=== PATIENT | female | born 1985 | race Hispanic/Latino ===

== ENCOUNTER → 2016-02-23 | Outpatient (CLI) | payer BC ==
[~2016-02-23] MED LIST: FERR-57 PO; HYDR-3583 PO; HYDR-3812 PO; IBP800T PO; LEVO50TA6 PO; PRD20T PO; PREN1TAB39 PO
--- NOTE | 2016-02-23 16:05 | Diagnostic Imaging Report ---
Indication: Heavy menstrual cycles. Comparison: 04/13/2015. Discussion: Transabdominal and transvaginal sonographic evaluation of the pelvis was performed. The uterus is normal in echotexture and size measuring 8.1 x 4.8 x 4.5 cm. Normal endometrial thickness measuring 0.6 cm. The ovaries appear normal in echotexture and size bilaterally with normal color Doppler blood flow. The right ovary measures 2.6 x 2.1 x 2.1 cm. The left ovary measures 4.5 x 2.3 x 1.8 cm. No abnormal adnexal mass or fluid. Impression: 1. Unremarkable pelvic ultrasound. Dictated by: Dictated on workstation # [id number]
== END ==
LOC: RAD 14:52
PROVIDERS: ATTEND Family Medicine
DX: N93.9 Abnormal uterine and vaginal bleeding, unspecified (principal)
CPT/HCPCS: 76830; 76856

== ENCOUNTER 2020-01-14 20:32 | Emergency (ER) | payer BC ==
[~2020-01-14] VITALS: Ht 157 cm; Wt 83.8 kg
[~2020-01-14 20:32] MED LIST changes: +ACHD5005 PO; -HYDR-3812 PO
[2020-01-14 21:10] LABS: BILIRUBIN,URINE NEGATIVE (NEGATIVE); COLOR,URINE YELLOW; GLUCOSE, URINE (UA) NEGATIVE (NEGATIVE); KETONES,URINE NEGATIVE (NEGATIVE); LEUKOCYTE ESTERASE ,URINE 3+ (NEGATIVE); NITRITE,URINE NEGATIVE (NEGATIVE); PH,URINE 6.5 (5-9); PROTEIN,URINE NEGATIVE (NEGATIVE)
[2020-01-14] MEDS ORDERED: ANTACID SUSP 30 ML UDC (MYLANTA) PO ONE (21:15)
[2020-01-14] MEDS ORDERED: LIDOCAINE 2% VISCOUS 15 ML UDC PO ONE (21:15)
--- NOTE | 2020-01-14 21:17 | ED Abdominal Pain ---
General Chief Complaint: Back Problems Stated Complaint: LOWER BACK PAIN;ABD PAIN; APPROX 9 WKS Nursing Triage Note: PT REPORTS TO ED FOR LOW BACK PAIN AND ABDOMINAL PAIN X'S 2 DAYS. PT REPORTS SHE IS AND IS ABOUT 9 WEEKS ALONG. Sepsis Screen: No Definite Risk Source of Information: Patient Exam Limitations: No Limitations History of Present Illness Date Seen by Provider: Jan 14, 2020 Time Seen by Provider: 20:50 Initial Comments This 34-year-old woman at about 9 weeks gestational age with LMP of November 06 presents to the emergency room with epigastric and left upper quadrant pain radiating to the back that started yesterday. She denies any prior episodes. She has had minimal nausea through the . She denies any urinary symptoms, fever, constipation, diarrhea, or vomiting. Allergies and Home Medications Allergies Coded Allergies: No Known Drug Allergies (Unverified , 05/30/10) Home Medications Hydrocodone Bit/Acetaminophen 1 Each Tablet, 1-2 EACH PO Q4H PRN for PAIN Prescribed by: SAMANTHA DICKSON on 04/07/15 0407 Levothyroxine Sodium 50 Mcg Tablet, 25 MCG PO DAILY, (Reported) Patient Home Medication List Home Medication List Reviewed: Yes Review of Systems Review of Systems Constitutional: no symptoms reported EENTM: No Symptoms Reported Respiratory: No Symptoms Reported Cardiovascular: No Symptoms Reported Gastrointestinal: See HPI Genitourinary: See HPI Musculoskeletal: no symptoms reported Skin: no symptoms reported Psychiatric/Neurological: No Symptoms Reported Endocrine: No Symptoms Reported Hematologic/Lymphatic: No Symptoms Reported Past Ltdhfbc-Plxsxa-Vfhpls Hx Past Med/Social Hx: Reviewed Nursing Past Med/Soc Hx Patient Social History Alcohol Use: Denies Use Recreational Drug Use: No Smoking Status: Never a Smoker Recent Foreign Travel: No Contact w/Someone Who Travel: No Recent Infectious Disease Expo: No Recent Hopitalizations: No Seasonal Allergies Seasonal Allergies: No Past Medical History Surgeries: No Respiratory: No Cardiac: No Neurological: No : Yes Reproductive Disorders: No Gastrointestinal: No Musculoskeletal: No Endocrine: Yes Hypothyroidsim Cancer: No Psychosocial: No Blood Disorders: No Physical Exam Vital Signs Vital Signs - First Documented 01/14/20 01/15/20 20:44 00:49 Temp 35.7 Pulse 64 Resp 18 B/P (MAP) 123/72 (89) Pulse Ox 100 O2 Delivery Room Air Capillary Refill : Less Than 3 Seconds Height/Weight/BMI Height: 5'5" Weight: 185lbs. oz. 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, no motor/sensory deficits, alert, normal mood/affect, oriented x 3 Skin: normal color, warm/dry Progress/Results/Core Measures Results/Orders Lab Results Laboratory Tests Test 01/14/20 20:56 01/14/20 21:37 Range/Units Urine Color YELLOW Urine Clarity SL CLOUDY Urine pH 6.5 5-9 Urine Specific [place] 1.020 1.016-1.022 Urine Protein NEGATIVE NEGATIVE Urine Glucose (UA) NEGATIVE NEGATIVE Urine Ketones NEGATIVE NEGATIVE Urine Nitrite NEGATIVE NEGATIVE Urine Bilirubin NEGATIVE NEGATIVE Urine Urobilinogen 0.2 < = 1.0 MG/DL Urine Leukocyte Esterase 3+ H NEGATIVE Urine RBC (Auto) TRACE-I NEGATIVE Urine RBC RARE /HPF Urine WBC 10-25 H /HPF Urine Squamous Epithelial Cells 5-10 /HPF Urine Crystals PRESENT H /LPF Urine Amorphous Sediment FEW FELICIA URATES H /LPF Urine Bacteria MODERATE H /HPF Urine Casts NONE /LPF Urine Mucus NEGATIVE /LPF Urine Culture Indicated YES Urine Test POSITIVE NEGATIVE White Blood Count 10.8 4.3-11.0 10^3/uL Red Blood Count 4.43 3.80-5.11 10^6/uL Hemoglobin 12.1 11.5-16.0 g/dL Hematocrit 38 35-52 % Mean Corpuscular Volume 85 80-99 fL Mean Corpuscular Hemoglobin 27 25-34 pg Mean Corpuscular Hemoglobin Concent 32 32-36 g/dL Red Cell Distribution Width 13.9 10.0-14.5 % Platelet Count 300 130-400 10^3/uL Mean Platelet Volume 9.3 9.0-12.2 fL Immature Granulocyte % (Auto) 0 % Neutrophils (%) (Auto) 69 42-75 % Lymphocytes (%) (Auto) 21 12-44 % Monocytes (%) (Auto) 7 0-12 % Eosinophils (%) (Auto) 2 0-10 % Basophils (%) (Auto) 0 0-10 % Neutrophils # (Auto) 7.5 1.8-7.8 10^3/uL Lymphocytes # (Auto) 2.3 1.0-4.0 10^3/uL Monocytes # (Auto) 0.8 0.0-1.0 10^3/uL Eosinophils # (Auto) 0.2 0.0-0.3 10^3/uL Basophils # (Auto) 0.0 0.0-0.1 10^3/uL Immature Granulocyte # (Auto) 0.0 0.0-0.1 10^3/uL Sodium Level 137 135-145 MMOL/L Potassium Level 4.0 3.6-5.0 MMOL/L Chloride Level 105 98-107 MMOL/L Carbon Dioxide Level 21 21-32 MMOL/L Anion Gap 11 5-14 MMOL/L Blood Urea Nitrogen 10 7-18 MG/DL Creatinine 0.75 0.60-1.30 MG/DL Estimat Glomerular Filtration Rate > 60 BUN/Creatinine Ratio 13 Glucose Level 105 70-105 MG/DL Calcium Level 8.5 8.5-10.1 MG/DL Corrected Calcium 8.4 L 8.5-10.1 MG/DL Total Bilirubin 0.3 0.1-1.0 MG/DL Aspartate Amino Transf (AST/SGOT) 16 5-34 U/L Alanine Aminotransferase (ALT/SGPT) 17 0-55 U/L Alkaline Phosphatase 49 40-136 U/L C-Reactive Protein High Sensitivity 0.21 0.00-0.50 MG/DL Total Protein 7.8 6.4-8.2 GM/DL Albumin 4.1 3.2-4.5 GM/DL Lipase 23 8-78 U/L Human Chorionic Gonadotropin, Quant 34019 H <5 MIU/ML My Orders [place] - LAMINE THOMPSON MD Hcg,Qualitative Urine (01/14/20 21:01) Ua Culture If Indicated (01/14/20 21:01) Lidocaine 2% Viscous 15 Ml (Xylocaine Vi (01/14/20 21:15) Antacid Suspension (Mylanta Suspension (01/14/20 21:15) Urine Culture (01/14/20 20:56) Cbc With Automated Diff (01/14/20 21:30) Comprehensive Metabolic Panel (01/14/20 21:30) Hs C Reactive Protein (01/14/20 21:30) Hcg,Quantitative (01/14/20 21:30) Lipase (01/14/20 21:30) Ceftriaxone For Iv Use (Rocephin For I (01/14/20 22:45) Fentanyl Injection (Sublimaze Injection (01/14/20 23:00) Ondansetron Injection (Zofran Injectio (01/14/20 23:00) Ondansetron Injection (Zofran Injectio (01/14/20 22:49) Fentanyl Injection (Sublimaze Injection (01/15/20 00:00) Medications Given in ED Current Medications Medications Dose Ordered Sig/Shabnam Route Start Time Stop Time Status Last Admin Dose Admin Al Hydrox/Mg Hydrox/Simethicone 30 ml ONCE ONCE PO 01/14/20 21:15 01/14/20 21:16 DC 01/14/20 21:11 30 ML Ceftriaxone Sodium 1000 mg/ Sterile Water 10 ml @ 200 mls/hr ONCE ONCE IV 01/14/20 22:45 01/14/20 22:47 DC 01/14/20 22:45 200 MLS/HR Fentanyl Citrate 50 mcg ONCE ONCE IVP 01/14/20 23:00 01/14/20 23:01 DC 01/14/20 22:57 50 MCG Fentanyl Citrate 50 mcg ONCE ONCE IVP 01/15/20 00:00 01/15/20 00:00 DC 01/14/20 23:59 50 MCG Lidocaine HCl 15 ml ONCE ONCE PO 01/14/20 21:15 01/14/20 21:16 DC 01/14/20 21:11 15 ML Ondansetron HCl 4 mg ONCE ONCE IVP 01/14/20 23:00 01/14/20 23:01 DC 01/14/20 22:53 4 MG Vital Signs/I&O 01/14/20 01/15/20 20:44 00:49 Temp 35.7 Pulse 64 54 Resp 18 20 B/P (MAP) 123/72 (89) 115/67 Pulse Ox 100 O2 Delivery Room Air Room Air Blood Pressure Mean: 89 Progress Progress Note #1: Time: 21:17 Progress Note Patient was seen and examined. Urinalysis is pending. GI cocktail is being trialed. If this does not improve her pain, we will consider further work-up with blood work. Progress Note #2: Time: 21:52 Progress Note GI cocktail did not improve her pain. We are further evaluating with labs. Urinalysis demonstrated urinary tract infection. Progress Note #3: Time: 22:58 Progress Note Patient is being treated with Rocephin. Pain seems to have escalated. Fentanyl is being given for pain and Zofran is being given for nausea. At this point I believe the patient deserves ultrasound to evaluate her pain further. Lab work did not reveal anything in regard to etiology of her pain. I contacted [facility]. Their ultrasound availability will be ending shortly. A call has been placed to [place] awaiting a return call. Progress Note #4: Time: 23:[address] Martínez accepts transfer to [place] ER for imaging. Progress Note #5: Progress Note Patient was still having significant pain prior to transfer and was given second dose of Fentanyl. Departure Impression Primary Impression: Upper abdominal pain Additional Impressions: Urinary tract infection Qualified Codes: N39.0 - Urinary tract infection, site not specified Qualified Codes: Z3A.09 - 9 weeks gestation of Disposition: XF SHT-TRM HOSP Condition: Stable Transfer Transfer Reason: Exceeds level of care Time Spoke to Accepting Phy: 23:10 Transfer Progress Notes Transfer accepted by Dr. Martínez in the ER. [facility]ure-Patient Inst. Referrals: ATTILA WOODALL MD (PCP/Family) Primary Care Physician LAMINE THOMPSON MD Jan 14, 2020 21:17
[2020-01-14 21:23] LABS: CLARITY,URINE SL CLOUDY
[2020-01-14 21:24] LABS: AMORPHOUS SEDIMENT,UR FEW AMOR URATES /LPF; BACTERIA,URINE MODERATE /HPF; RBC,URINE RARE /HPF
[2020-01-14 21:44] LABS: BASOPHILS % (AUTO) 0 % (0-10); EOSINOPHILS # (AUTO) 0.2 10^3/uL (0.0-0.3); EOSINOPHILS % (AUTO) 2 % (0-10); HEMATOCRIT 38 % (35-52); HEMOGLOBIN 12.1 g/dL (11.5-16.0); LYMPHOCYTES # (AUTO) 2.3 10^3/uL (1.0-4.0); LYMPHOCYTES % (AUTO) 21 % (12-44); MEAN CORPUSCULAR HEMOGLOBIN 27 pg (25-34); MEAN CORPUSCULAR HGB CONC 32 g/dL (32-36); MEAN CORPUSCULAR VOLUME 85 fL (80-99); MEAN PLATELET VOLUME 9.3 fL (9.0-12.2); MONOCYTES # (AUTO) 0.8 10^3/uL (0.0-1.0); MONOCYTES % (AUTO) 7 % (0-12); NEUTROPHILS # (AUTO) 7.5 10^3/uL (1.8-7.8); NEUTROPHILS % (AUTO) 69 % (42-75); PLATELET COUNT 300 10^3/uL (130-400); WHITE BLOOD COUNT 10.8 10^3/uL (4.3-11.0)
[2020-01-14 21:54] LABS: ALBUMIN 4.1 GM/DL (3.2-4.5); CHLORIDE 105 MMOL/L (98-107); SODIUM 137 MMOL/L (135-145)
[2020-01-14 21:55] LABS: CALCIUM 8.5 MG/DL (8.5-10.1)
[2020-01-14 21:56] LABS: GLUCOSE 105 MG/DL (70-105); TOTAL PROTEIN 7.8 GM/DL (6.4-8.2)
[2020-01-14 21:57] LABS: CARBON DIOXIDE 21 MMOL/L (21-32)
[2020-01-14 21:58] LABS: BILIRUBIN,TOTAL 0.3 MG/DL (0.1-1.0)
[2020-01-14 22:00] LABS: ALKALINE PHOSPHATASE 49 U/L (40-136); CREATININE SERUM 0.75 MG/DL (0.60-1.30); GFR ESTIMATED > 60
[2020-01-14 22:01] LABS: BUN/CREATININE RATIO 13
[2020-01-14 22:03] LABS: ALANINE AMINOTRANSFERASE 17 U/L (0-55); LIPASE 23 U/L (8-78)
[2020-01-14] MEDS ORDERED: cefTRIAXone FOR IV USE 1,000 MG in WATER (STERILE) FOR INJECTION 10 ML IV ONE (22:45)
[2020-01-14] MEDS ORDERED: ONDANSETRON 4 MG/2 ML (SDV) Z0FRAN ONE (22:49)
[2020-01-14] MEDS ORDERED: ONDANSETRON 4 MG/2 ML (SDV) Z0FRAN IVP ONE (23:00)
[2020-01-14] MEDS ORDERED: fentaNYL INJECTION 100 MCG/2 ML AMP IVP ONE (23:00)
[2020-01-15] MEDS ORDERED: fentaNYL INJECTION 100 MCG/2 ML AMP IVP ONE
[2020-01-15 00:49] VITALS: BP 115/67
== END 2020-01-15 | disposition short-term general hospital (02) ==
LOC: EDUNIT# 20:32 → ER 20:36
DX: O26.891 Other specified pregnancy related conditions, first trimester (principal); R10.13 Epigastric pain; N39.0 Urinary tract infection, site not specified; E03.9 Hypothyroidism, unspecified; Z3A.09 9 weeks gestation of pregnancy; Z79.890 Hormone replacement therapy
CPT/HCPCS: 36415; 80053; 81000; 83690; 84702; 84703; 85025; 86141; 87077; 87088

== ENCOUNTER → 2020-01-17 | Outpatient (CLI) | payer BC ==
--- NOTE | 2020-01-17 17:04 | Diagnostic Imaging Report ---
PROCEDURE: US OB single fetus <14 wks. TECHNIQUE: Multiple real-time grayscale images were obtained over the gravid uterus in various projections. INDICATION: dating. COMPARISON: None. FINDINGS: A single live intrauterine gestation is present with a CRL of 1.2 cm. This corresponds with an estimated gestational age of 7 weeks 3 days and DEBORAH of 08/13/2020. heart rate is 161 bpm. The gestational sac demonstrates double decidual reaction and has normal contours and fluid. A formal anatomic survey was not performed. No gross abnormalities are present. The right ovary measures 2.4 x 3.5 x 3.0 cm. A cyst is seen in the right ovary measuring 2.5 x 1.7 x 2.2 cm. The left ovary is not visualized due to overlying bowel gas. No adnexal masses are seen. No free fluid is visualized within the posterior cul-de-sac. IMPRESSION: 1. Single live intrauterine gestation with EGA of 7 weeks, 3 days and estimated due date of 08/13/2020. These are discordant with the clinical dates. Recommend continued follow-up with serial beta hCGs and pelvic ultrasound as indicated. Dictated by: Dictated on workstation # [id number]
== END ==
LOC: RAD 10:15
PROVIDERS: ATTEND Family Medicine
DX: Z34.91 Encounter for supervision of normal pregnancy, unspecified, first trimester (principal); Z3A.01 Less than 8 weeks gestation of pregnancy
CPT/HCPCS: 76801

== ENCOUNTER → 2020-04-05 | Outpatient (CLI) | payer BC ==
--- NOTE | 2020-04-05 14:47 | Diagnostic Imaging Report ---
INDICATION: patient, survey. TECHNIQUE: Multiple real-time grayscale images were obtained over the gravid uterus. COMPARISON: 01/17/2020 FINDINGS: A single live intrauterine fetus is seen measuring 20 weeks 0 days in size. This is about 10 days smaller than expected compared to original dates of 01/17/2020. The fetus is in breech presentation at this time. Amniotic fluid index is 13.5 cm. Placenta is anterior with no evidence of previa. heart rate is 143 bpm. Gestational sac had normal-appearing shape. Cervical length was 6 cm. anatomical survey showed normal-appearing kidneys and bladder. Normal-appearing stomach was seen. Normal-appearing intracranial ventricles were seen. Three-vessel cord was noted. Four-chamber heart view appeared normal. spine and cord insertion were not well imaged due to positioning. Adnexa were not well seen but there was no free fluid. Biometrical measurements are as follows: Biparietal 4.66 cm, age 20 weeks 1 days. Head circumference 17.45 cm, age 20 weeks 0 days. Abdominal circumference 14.65 cm, age 20 weeks 0 days. Femur length 3.13 cm, age 19 weeks 6 days. Sonographic estimate age: 20 weeks 0 days. Sonographic estimated date of delivery: 08/23/2020. Estimated Weight: 318 gm (+/- 46 gm). LMP percentile: 2%. heart rate: 143 beats per minute. number: 1 of 1. IMPRESSION: Single live intrauterine fetus measuring 20 weeks 0 days in size. This is about 10 days more than expected from original dates compared to the ultrasound of 01/17/2020. There was no detectable abnormality, although spine and cord insertion were not well seen. Consider limited follow-up as clinically warranted. Dictated by: Dictated on workstation # [id number]
== END ==
LOC: RAD 10:00
PROVIDERS: ATTEND Family Medicine
DX: Z34.92 Encounter for supervision of normal pregnancy, unspecified, second trimester (principal); Z3A.20 20 weeks gestation of pregnancy
CPT/HCPCS: 76805

== ENCOUNTER 2020-08-17 07:06 | Outpatient (CLI) | payer BC ==
[~2020-08-17] VITALS: Ht 162.6 cm; Wt 94.5 kg
== END 2020-08-17 14:16 | disposition home or self-care (01) ==
LOC: PREOP 07:06
PROVIDERS: ATTEND Obstetrics & Gynecology
DX: Z01.818 Encounter for other preprocedural examination (principal)

== ENCOUNTER 2020-08-21 23:26 | Inpatient (IN) | payer BC ==
[~2020-08-21] VITALS: Ht 162.6 cm; Wt 96.3 kg
[2020-08-21 23:51] VITALS: BP 129/75
[2020-08-21 23:56] LABS: BILIRUBIN,URINE NEGATIVE (NEGATIVE); CLARITY,URINE CLEAR; COLOR,URINE AMBER; GLUCOSE, URINE (UA) NEGATIVE (NEGATIVE); KETONES,URINE NEGATIVE (NEGATIVE); LEUKOCYTE ESTERASE ,URINE 2+ (NEGATIVE); NITRITE,URINE NEGATIVE (NEGATIVE); PROTEIN,URINE NEGATIVE (NEGATIVE)
[2020-08-22] VITALS (11 sets, daily range): BP systolic 104–126; BP diastolic 53–75
[2020-08-22 00:06] LABS: BACTERIA,URINE FEW /HPF; RBC,URINE >100 /HPF
[2020-08-22] MEDS ORDERED: LACTATED RINGERS 1,000 ML IV ONE (00:15)
[2020-08-22] MEDS ORDERED: ceFAZolin 2 GM IV Premixed 50 ML IV ONE ×2 (00:15→08:45)
[2020-08-22] MEDS ORDERED: ceFAZolin 2 GM IV Premixed 50 ML ONE ×2 (00:15→11:04)
[2020-08-22] MEDS: D5 LR IV SOLUTION 1,000 ML IV SCH ×2 (01:38→10:53)
[2020-08-22] MEDS ORDERED: LEVO75CA5 PO (06:16)
[2020-08-22] MEDS ORDERED: PREN-142 PO (06:16)
[2020-08-22 06:20] LABS: BASOPHILS % (AUTO) 0 % (0-10); EOSINOPHILS # (AUTO) 0.2 10^3/uL (0.0-0.3); EOSINOPHILS % (AUTO) 2 % (0-10); HEMATOCRIT 33 % (35-52); LYMPHOCYTES # (AUTO) 1.9 10^3/uL (1.0-4.0); LYMPHOCYTES % (AUTO) 20 % (12-44); MEAN CORPUSCULAR HEMOGLOBIN 29 pg (25-34); MEAN CORPUSCULAR HGB CONC 33 g/dL (32-36); MEAN CORPUSCULAR VOLUME 87 fL (80-99); MEAN PLATELET VOLUME 10.8 fL (9.0-12.2); MONOCYTES # (AUTO) 0.6 10^3/uL (0.0-1.0); MONOCYTES % (AUTO) 6 % (0-12); NEUTROPHILS # (AUTO) 6.7 10^3/uL (1.8-7.8); NEUTROPHILS % (AUTO) 70 % (42-75); PLATELET COUNT 211 10^3/uL (130-400); WHITE BLOOD COUNT 9.5 10^3/uL (4.3-11.0)
--- NOTE | 2020-08-22 08:23 | History & Physical-OB ---
OB - Chief Complaint & HPI Date/Time Date of Admission: Date of Admission: Date seen by a Provider: Aug 22, 2020 Time Seen by a Provider: 08:20 Chief Complaint/History OB-Reason for Admission/Chief: Section Hx : 2 Hx Para: 1 Expected Date of Delivery: Sep 01, 2020 Gestational Age in Weeks: 38 Gestational Age in Days: 3 Indication for : desires repeat Admission Nurse Assessment Rev: Yes Allergies and Home Medications Allergies Coded Allergies: No Known Drug Allergies (Unverified , 05/30/10) Home Medications Levothyroxine Sodium 75 Mcg Capsule, 75 MCG PO DAILY, (Reported) Last Action: New Order Vit No.124/Iron/FA 1 Each Tablet, 1 EACH PO DAILY, (Reported) Last Action: New Order Patient Home Medication List Home Medication List Reviewed: Yes OB - History Hx of Present Care: Yes Ultrasounds: Normal mid trimester US Obstetrical Complications: None Medical Complications: None Obstetrical History Hx : 2 Hx Para: 1 Hx Total # of Abortions (Spona: 0 Delivery History Hx Blood Disorders: No Patient Past Medical History n/a Social History/Family History Alcohol Use: Denies Use Recreational Drug Use: No 2nd Hand Smoke Exposure: No OB - Admission Exam Physical Exam Vitals: Vital Signs 08/22/20 01:40 Temp 36.0 Pulse 70 Resp 18 B/P (MAP) 123/58 (79) O2 Delivery Room Air HEENT: NCAT Heart: Rhythm Normal Lungs: Clear Abdomen: Gravid Extremities: Normal Reflexes: Normal Cervical Dilatation: 2cm Effacement: 50% Station: -2 Membranes: Intact Heart Rate: 130's Accelerations: Accelerations Present Decelerations: No Decelerations Short Term Variability: Present Shelter Variability: Average (6-25) Contractions on Admission: 6-10 Minutes Apart Intensity: Mild Labs Laboratory Tests Test 08/21/20 23:30 08/22/20 00:30 Range/Units Urine Color ANGEL H Urine Clarity CLEAR Urine pH 7.0 5-9 Urine Specific [place] 1.010 L 1.016-1.022 Urine Protein NEGATIVE NEGATIVE Urine Glucose (UA) NEGATIVE NEGATIVE Urine Ketones NEGATIVE NEGATIVE Urine Nitrite NEGATIVE NEGATIVE Urine Bilirubin NEGATIVE NEGATIVE Urine Urobilinogen 0.2 < = 1.0 MG/DL Urine Leukocyte Esterase 2+ H NEGATIVE Urine RBC (Auto) 3+ H NEGATIVE Urine RBC >100 H /HPF Urine WBC 5-10 H /HPF Urine Squamous Epithelial Cells 5-10 /HPF Urine Crystals NONE /LPF Urine Bacteria FEW H /HPF Urine Casts NONE /LPF Urine Mucus NEGATIVE /LPF Urine Culture Indicated YES White Blood Count 9.5 4.3-11.0 10^3/uL Red Blood Count 3.86 3.80-5.11 10^6/uL Hemoglobin 11.0 L 11.5-16.0 g/dL Hematocrit 33 L 35-52 % Mean Corpuscular Volume 87 80-99 fL Mean Corpuscular Hemoglobin 29 25-34 pg Mean Corpuscular Hemoglobin Concent 33 32-36 g/dL Red Cell Distribution Width 17.8 H 10.0-14.5 % Platelet Count 211 130-400 10^3/uL Mean Platelet Volume 10.8 9.0-12.2 fL Immature Granulocyte % (Auto) 1 % Neutrophils (%) (Auto) 70 42-75 % Lymphocytes (%) (Auto) 20 12-44 % Monocytes (%) (Auto) 6 0-12 % Eosinophils (%) (Auto) 2 0-10 % Basophils (%) (Auto) 0 0-10 % Neutrophils # (Auto) 6.7 1.8-7.8 10^3/uL Lymphocytes # (Auto) 1.9 1.0-4.0 10^3/uL Monocytes # (Auto) 0.6 0.0-1.0 10^3/uL Eosinophils # (Auto) 0.2 0.0-0.3 10^3/uL Basophils # (Auto) 0.0 0.0-0.1 10^3/uL Immature Granulocyte # (Auto) 0.1 0.0-0.1 10^3/uL Percent Immature Platelet Fraction 2.1 0.0-7.6 % OB - Assessment/Plan/Diagnosis Assessment Assessment: section Admission Dx 35 yo @ 38.4 Previous Active labor Vaginal bleeding Admission Status: Inpatient Order (span 2 midnights) Reason for Inpatient Admission: Repeat Plan Plan: Section SAV NETTLES DO Aug 22, 2020 08:23
[2020-08-22] MEDS ORDERED: FAMOTIDINE 20MG/2ML IV (PEPCID) IV ONE ×2 (08:45→09:00)
[2020-08-22] MEDS ORDERED: CATHETER FLUSH 10 ML SYR IV PRN (08:45)
[2020-08-22] MEDS ORDERED: CITRIC ACID/SOB CIT (BICITRA) 30 ML UDC PO ONE ×2 (08:45→09:00)
[2020-08-22] MEDS ORDERED: LACTATED RINGERS 1,000 ML IV PRN ×2 (08:45)
[2020-08-22] MEDS ORDERED: METOCLOPRAMIDE INJ 10 MG/2 ML (REGLAN) IV ONE ×2 (08:45→09:00)
[2020-08-22] MEDS ORDERED: LACTATED RINGERS 1,000 ML IV SCH (09:00)
[2020-08-22] MEDS ORDERED: CITRIC ACID/SOB CIT (BICITRA) 30 ML UDC ONE (10:46)
[2020-08-22] MEDS ORDERED: FAMOTIDINE 20MG/2ML IV (PEPCID) ONE (10:46)
[2020-08-22] MEDS ORDERED: METOCLOPRAMIDE INJ 10 MG/2 ML (REGLAN) IV NR (11:30)
[2020-08-22] MEDS: LACTATED RINGERS 1,000 ML IV SCH ×2 (11:37→19:36)
[2020-08-22] MEDS ORDERED: BUPIVACAINE 0.5% 30 ML (SENSORCAINE) VIAL ONE (12:07)
[2020-08-22] MEDS ORDERED: OXYTOCIN PRE-MIX DRIP 1,000 ML IV ONE (12:07)
[2020-08-22] MEDS ORDERED: fentaNYL INJ 100 MCG/2 ML AMP ONE (12:08)
[2020-08-22] MEDS ORDERED: ONDANSETRON 4 MG/2 ML (SDV) Z0FRAN ONE (12:11)
[2020-08-22] MEDS ORDERED: TETANUS,DIPTH,PERTUSS P/F (BOOSTRIX) 0.5 ML VIAL IM SCH (12:15)
[2020-08-22] MEDS ORDERED: OXYTOCIN PRE-MIX DRIP 500 ML IV SCH (12:15)
[2020-08-22] MEDS ORDERED: ONDANSETRON 4 MG/2 ML (SDV) Z0FRAN IVP PRN (12:15)
[2020-08-22] MEDS ORDERED: MEASLES,MUMPS,RUBELLA 1 EA INJ SC SCH (12:15)
[2020-08-22] MEDS: KETOROLAC 30 MG/ML VIAL IV SCH ×2 (16:00→21:07)
--- NOTE | 2020-08-22 17:06 | OPERATIVE REPORT ---
DATE OF SERVICE: PREOPERATIVE DIAGNOSES: 1. A 35-year-old G2, P1 at 38 weeks and 4 days gestation. 2. Active labor. 3. Vaginal bleeding. POSTOPERATIVE DIAGNOSES: 1. A 35-year-old G2, P1 at 38 weeks and 4 days gestation. 2. Active labor. 3. Vaginal bleeding. PROCEDURE: Repeat low transverse section. SURGEON: Bharat Nettles DO SUPERVISOR PHOTOSTAT: Dr. Anthony Mcclellan, visitor services assistant was necessary for retraction and manipulation throughout the procedure. ANESTHESIA: Spinal. ESTIMATED BLOOD LOSS: 200 mL. URINE OUTPUT: 100 mL clear at the end of the procedure. FLUIDS: 800 mL lactated Ringer's solution. FINDINGS: A live male infant weighing 6 pounds 8 ounces, Apgars of 9 and 9. Grossly normal appearing uterus, bilateral fallopian tubes and ovaries. SPECIMEN SENT: None. INDICATIONS FOR PROCEDURE: This 35-year-old female is a patient who had sought care with Dr. Mcclellan. Her care was uncomplicated except for the consultation needed for repeat . I had seen the patient in the office and discussed with her and she was actually scheduled for this Friday; however, the patient presented in active labor this morning and we decided to proceed with delivery due to 38 weeks and active labor. Risks of the procedure had been discussed with the patient in detail in her preoperative consultation. After all of her questions were answered in the preoperative area, her consent was obtained, the patient was taken to the operating room. OPERATIVE REPORT IN DETAIL: Once in the operating room, spinal analgesia was found to be adequate, placed in supine position with leftward tilt, prepped and draped in normal sterile fashion. A timeout was performed and anesthesia was tested. I then make a Pfannenstiel skin incision through the previously existing scar using knife and carried down to the underlying fascia using Bovie cautery. Fascial incision was extended laterally using Bovie cautery. Superior aspect of fascial incision was then grasped with Tash clamps, tented up and dissected off the underlying rectus muscle. Inferior aspect of the fascial incision was then grasped with Tash clamps, tented up and dissected off the underlying rectus muscles. Rectus muscles were then dissected down the midline using Kaminski scissors, which exposed the peritoneum, which I entered bluntly and extended using blunt traction. Baldemar ring retractor was placed in the peritoneal incision, which offers excellent lateral sidewall retraction. I then identified the lower uterine segment, which was found to be thinned out and make a low transverse incision to the vesicouterine peritoneum and bluntly dissected off the lower uterine segment, creating a bladder flap. I then proceeded with my myotomy until membranes are visualized, at which point I extended the uterine incision laterally and superiorly using bandage scissors. Amniotomy was performed using an Allis clamp. Clear fluid was noted. Infant was found in vertex presentation, which under fundal pressure, the 's head was elevated up the incision where it delivered through the incision up to the neck where the nares and oropharynx were bulb suctioned. Anterior and posterior shoulders were delivered. The infant was then brought to the operative field with cord doubly clamped and cut and was taken off the field by Dr. Mcclellan. Cord blood was collected, 3-vessel cord with intact placenta was delivered spontaneously thereafter. IV Pitocin was initiated to facilitate uterine contraction. Uterine fundus became firmer with bimanual massage. The uterus was then exteriorized and cleared of all endometrial clots and debris. I then proceeded with closing the uterine incision using 0 Vicryl suture in a running locked fashion. Second layer of imbricating 0 Monocryl was placed. Excellent hemostasis was noted after doing this. I then placed the uterus back in the pelvis and copiously irrigated the pelvis using normal saline. Once again, there was no active bleeding noted from any of my dissection planes. I placed Interceed antiadhesive over my low transverse incision and then proceeded with removing the Baldemar ring retractor. The peritoneum was reapproximated using 3-0 Vicryl suture in running fashion. Rectus muscle reapproximated using 3-0 Vicryl suture in interrupted fashion. The fascia was reapproximated using 0 Vicryl suture in running fashion. Subcutaneous tissue was reapproximated using 3-0 plain and interrupted subcutaneous stitch and skin reapproximated using 4-0 Monocryl running subcuticular. Dermabond was applied to incision and sterile dressing with adhesive white tape. The patient tolerated the procedure well and was taken to recovery area in stable condition. Lap and sponge counts were correct at the end of procedure. Instrument count was correct as well. Two grams of Ancef given preoperatively for infection prophylaxis. Job ID: [id number] DocumentID: [id number] Dictated Date: 08/22/2020 14:29:05 Associate Research Scientist Date: 08/22/2020 17:04:37 Dictated By: BHARAT NETTLES DO
[2020-08-22] MEDS: IBUPROFEN 600 MG (MOTRIN) TAB PO SCH (19:36)
[2020-08-22] MEDS: DOCUSATE SODIUM 100 MG (COLACE) CAP PO SCH (21:07)
[2020-08-22] MEDS: HYDROcodone/APAP 5 MG/325 MG (LORTAB) TAB PO PRN (21:07)
[2020-08-22] MEDS: CATHETER FLUSH 10 ML SYR IV SCH ×2 (21:07→23:51)
[2020-08-23] MEDS: IBUPROFEN 600 MG (MOTRIN) TAB PO SCH ×5 (00:46→21:41)
[2020-08-23 00:52] VITALS: BP 99/57
[2020-08-23] MEDS: HYDROcodone/APAP 5 MG/325 MG (LORTAB) TAB PO PRN ×4 (00:52→21:41)
[2020-08-23 03:50] VITALS: BP 112/54
[2020-08-23] MEDS: KETOROLAC 30 MG/ML VIAL IV SCH ×2 (03:50→07:08)
[2020-08-23] MEDS: CATHETER FLUSH 10 ML SYR IV SCH (03:50)
[2020-08-23 07:24] LABS: BASOPHILS % (AUTO) 0 % (0-10); EOSINOPHILS # (AUTO) 0.2 10^3/uL (0.0-0.3); EOSINOPHILS % (AUTO) 2 % (0-10); HEMATOCRIT 29 % (35-52); HEMOGLOBIN 9.3 g/dL (11.5-16.0); LYMPHOCYTES # (AUTO) 1.9 10^3/uL (1.0-4.0); LYMPHOCYTES % (AUTO) 24 % (12-44); MEAN CORPUSCULAR HEMOGLOBIN 28 pg (25-34); MEAN CORPUSCULAR HGB CONC 32 g/dL (32-36); MEAN CORPUSCULAR VOLUME 86 fL (80-99); MEAN PLATELET VOLUME 9.8 fL (9.0-12.2); MONOCYTES # (AUTO) 0.7 10^3/uL (0.0-1.0); MONOCYTES % (AUTO) 9 % (0-12); NEUTROPHILS # (AUTO) 5.3 10^3/uL (1.8-7.8); NEUTROPHILS % (AUTO) 64 % (42-75); PLATELET COUNT 144 10^3/uL (130-400); WHITE BLOOD COUNT 8.2 10^3/uL (4.3-11.0)
--- NOTE | 2020-08-23 07:59 | Postpartum Progress Note ---
Note Note Day # 1 Subjective: Patient is without complaints. Ambulating, voiding. Tolerating a regular diet without nausea or vomiting. Normal lochia. Pain is well controlled with oral pain medications. Objective: Physical Exam: General - Alert and oriented, no apparent distress Abdomen - Soft, appropriately tender to palpation, non-distended, fundus firm at umbilicus Extremities - no edema, negative Lenore's bilaterally Incision- c/d/i Assessment: POD 1 RLTCS Acute blood loss anemia Plan: Routine care. Encourage breast feeding. Encourage ambulation. Ferrous sulfate supplementation. Plan for discharge tomorrow Vitals - Labs Vital Signs - I&O Vital Signs Date Time Temp Pulse Resp B/P (MAP) Pulse Ox O2 Delivery O2 Flow Rate FiO2 08/23/20 03:50 36.3 70 18 112/54 (73) 97 Room Air 08/23/20 00:52 36.3 72 18 99/57 (71) 99 Room Air 08/22/20 21:07 36.4 62 18 116/58 (77) 99 Room Air 08/22/20 18:14 96 Room Air 08/22/20 15:22 36.1 54 18 113/57 (75) 99 Room Air 08/22/20 15:05 Room Air 08/22/20 15:05 36.2 20 106/64 (78) 100 Room Air 08/22/20 15:00 Room Air 08/22/20 14:50 20 106/60 (75) 98 Room Air 08/22/20 14:45 Room Air 08/22/20 14:40 20 106/57 (73) 98 Room Air 08/22/20 14:30 Room Air 08/22/20 14:30 20 112/75 (87) 96 Room Air 08/22/20 14:20 20 104/53 (70) 98 Room Air 08/22/20 14:15 Room Air 08/22/20 14:08 Room Air 08/22/20 14:08 36.2 20 112/54 (73) 98 Room Air 08/22/20 11:35 36.2 66 18 116/62 (80) 99 Room Air I & O 08/23/20 07:00 Intake Total 1550 ml Output Total 2550 ml Balance -1000 ml Labs Laboratory Tests 08/23/20 07:06: White Blood Count 8.2, Red Blood Count 3.32L, Hemoglobin 9.3L, Hematocrit 29L, Mean Corpuscular Volume 86, Mean Corpuscular Hemoglobin 28, Mean Corpuscular Hemoglobin Concent 32, Red Cell Distribution Width 17.6H, Platelet Count 144, Mean Platelet Volume 9.8, Immature Granulocyte % (Auto) 1, Neutrophils (%) (Auto) 64, Lymphocytes (%) (Auto) 24, Monocytes (%) (Auto) 9, Eosinophils (%) (Auto) 2, Basophils (%) (Auto) 0, Neutrophils # (Auto) 5.3, Lymphocytes # (Auto) 1.9, Monocytes # (Auto) 0.7, Eosinophils # (Auto) 0.2, Basophils # (Auto) 0.0, Immature Granulocyte # (Auto) 0.1 Microbiology 08/22/20 MRSA Screen - Final, Complete MRSA not isolated SAV NETTLES DO Aug 23, 2020 07:59
[2020-08-23 08:49] VITALS: BP 109/55
[2020-08-23] MEDS: DOCUSATE SODIUM 100 MG (COLACE) CAP PO SCH ×2 (10:16→21:40)
[2020-08-23 12:25] VITALS: BP 123/59
--- NOTE | 2020-08-23 13:53 | Anesthesia-Regional Post-Op ---
Regional Patient Condition Mental Status: Alert, Oriented x3 Circulation: Same as Pre-Op Headache: Absent Sensation: Full Recovery Motor Block: Absent Post Op Complications Complications None Follow Up Care/Instructions Patient Instructions None needed. Anesthesia/Patient Condition Patient is doing well, no complaints, stable vital signs, no apparent adverse anesthesia problems. No complications reported per nursing. JUAN PASCAL CRNA Aug 23, 2020 13:53
[2020-08-23 17:00] VITALS: BP 115/58
[2020-08-23 21:41] VITALS: BP 126/60
[2020-08-24 04:12] VITALS: BP 120/59
[2020-08-24] MEDS: IBUPROFEN 600 MG (MOTRIN) TAB PO SCH ×2 (04:12→11:23)
[2020-08-24] MEDS: HYDROcodone/APAP 5 MG/325 MG (LORTAB) TAB PO PRN (04:12)
--- NOTE | 2020-08-24 07:26 | Postpartum Progress Note ---
PIA MADDEN MED STUDENT 08/24/20 0726: Note Note Day # [2] Subjective: Patient is without complaints. Ambulating, voiding. Tolerating a regular diet without nausea or vomiting. Normal lochia. Pain is well controlled with oral pain medications. Objective: Physical Exam: General - Alert and oriented, no apparent distress Incision- no purulent or bloody discharge, no erythema or edema Assessment: POD 2 RLTCS Acute blood loss anemia Plan: Routine care. Encourage breast feeding. Encourage ambulation. Ferrous sulfate supplementation. Plan for discharge today Vitals - Labs Vital Signs - I&O Vital Signs Date Time Temp Pulse Resp B/P (MAP) Pulse Ox O2 Delivery O2 Flow Rate FiO2 08/24/20 04:12 36.5 79 18 120/59 (79) 97 Room Air 08/23/20 21:41 36.4 79 18 126/60 (82) 97 Room Air 08/23/20 17:00 36.5 66 18 115/58 (77) 97 Room Air 08/23/20 12:25 36.5 89 18 123/59 (80) 96 Room Air 08/23/20 08:49 36.5 71 18 109/55 (73) 96 Room Air I & O 08/24/20 07:00 Intake Total 1400 ml Balance 1400 ml Labs Microbiology 08/22/20 MRSA Screen - Final, Complete MRSA not isolated 08/21/20 Urine Culture - Final, Complete 3 or more isolates Group B Streptococci SAV NETTLES DO 08/24/20 0834: Note Note Verification and Attestation of Medical Student E/M Service A medical student performed and documented this service in my presence. I reviewed and verified all information documented by the medical student and made modifications to such information, when appropriate. I personally performed the physical exam and medical decision making. Sav Nettles Aug 24, 2020,08:34 PIA MADDEN MED STUDENT Aug 24, 2020 07:26 SAV NETTLES DO Aug 24, 2020 08:34
[2020-08-24] MEDS ORDERED: IBUP-844 PO (08:30)
[2020-08-24] MEDS ORDERED: DCS100C PO (08:30)
[2020-08-24] MEDS ORDERED: ACHD5005 PO (08:30)
--- NOTE | 2020-08-24 08:32 | Discharge Inst-Women's Service ---
Discharge Inst-Women's Serv Depart Medication/Instructions New, Converted or Re-Newed RX: RX on Chart Final Diagnosis POD 2 RLTCS Problems Reviewed?: Yes Consults/Follow Up Additional Follow Up: Yes Orders/Referrals Dr. Roth in 7-[address] Mcclellan in 6 weeks Activity Activity: Activity as Tolerated Driving Instructions: No Driving for 1 Week NO SMOKING: NO SMOKING Nothing Inside Vagina: No Douching, No [place], No Tampons Diet Discharge Diet: No Restrictions Symptoms to Report to : Bleeding Excessive, Pain Increased, Fever Over 101 Degrees F, Vaginal Bleeding Increase, Questions/Concerns For Any Problems or Questions: Contact Your Physician Skin/Wound Care Infection Signs and Symptoms: Increased Redness, Foul Odor of Wound, Increased Drainage, Skin Itchy or Has a Rash, Increased Swelling, Temperature Above 101 F Operative Area Clean and Dry: Keep Incision Clean/Dry Stitches/Sarita/Dermabond: Dermabond, Care of Stitches Bathing Instructions: SAV Lopes DO Aug 24, 2020 8:32 am
[2020-08-24 08:42] VITALS: BP 120/59
[2020-08-24] MEDS: DOCUSATE SODIUM 100 MG (COLACE) CAP PO SCH (11:23)
== END 2020-08-24 12:05 | disposition home or self-care (01) | DRG 787 ==
LOC: WSo 23:26 → LDRP 23:27 → EDSTATUS 08-22 08:30 → LDRP 08-22 13:10
PROVIDERS: ADMIT Obstetrics & Gynecology; ATTEND Obstetrics & Gynecology
PROC: 10D00Z1 Extraction of Products of Conception, Low, Open Approach (ICD-10-PCS; principal; 2020-08-22 13:02)
DX: O34.211 Maternal care for low transverse scar from previous cesarean delivery (principal); D62 Acute posthemorrhagic anemia; Z3A.38 38 weeks gestation of pregnancy; Z37.0 Single live birth; O90.81 Anemia of the puerperium
CPT/HCPCS: 36415; 81000; 85025; 86850; 86900; 86901; 87077; 87081; 87088; 94664; 99212